=== PATIENT | female | born 1985 | race African-American/Black ===

== ENCOUNTER 2016-05-14 13:24 | Emergency (ER) | payer SELFPAY ==
--- NOTE | 2016-05-14 13:59 | ER Document Report ---
ED Medical Screen (RME) - General Stated Complaint: TOOTH PAIN Mode of Arrival: Ambulatory Information source: Patient Notes: Patient complains of dental pain for the past year. TRAVEL OUTSIDE OF THE [place] IN LAST 30 DAYS: No Past Medical History Past Surgical History: Reports: Hx Section Physical Exam - Vital signs Vitals: Temp Pulse Resp BP Pulse Ox 98.2 F 86 20 140/90 H 98 05/14/16 13:51 05/14/16 13:51 05/14/16 13:51 05/14/16 13:51 05/14/16 13:51 - General General appearance: Appears well, Alert In distress: None Course - Vital Signs Vital signs: Temp Pulse Resp BP Pulse Ox 98.2 F 86 20 140/90 H 98 05/14/16 13:51 05/14/16 13:51 05/14/16 13:51 05/14/16 13:51 05/14/16 13:51
[2016-05-14] MEDS ORDERED: OXYCODONE-ACETAMINOPHEN 5-325 MG TABLET PO ONE (15:40)
--- NOTE | 2016-05-14 15:41 | ER Document Report ---
HPI - HPI Patient complains to provider of: tooth pain Onset: This morning Onset/Duration: Sudden Quality of pain: Achy Severity: Severe Pain Level: 5 Context: Patient presents emergency department with complaints of right lower dental pain that started this morning. She reports she ate steak last night. Pain started this morning. Denies other symptoms such as fever vomiting diarrhea. Patient reports she had the same dental pain last year, came here received antibiotics, the tooth got better so she never followed up with a dentist. Associated Symptoms: None Exacerbated by: Denies Relieved by: Denies Similar symptoms previously: Yes Recently seen / treated by doctor: No - DERM Skin Color: Normal Past Medical History - General Information source: Patient Last Menstrual Period: current - Social History Smoking Status: Never Smoker Chew tobacco use (# tins/day): No Frequency of alcohol use: None Drug Abuse: None Occupation: [email or web address] Family History: Reviewed & Not Pertinent Patient has suicidal ideation: No Patient has homicidal ideation: No - Medical History Medical History: Negative Renal/ Medical History: Denies: Hx Peritoneal Dialysis Past Surgical History: Reports: Hx Section Vertical Provider Document - CONSTITUTIONAL Agree With Documented VS: Yes Exam Limitations: No Limitations General Appearance: WD/WN, No Apparent Distress - seems angry, nontoxic looking - INFECTION CONTROL TRAVEL OUTSIDE OF THE [place] IN LAST 30 DAYS: No - HEENT HEENT: Atraumatic, Normocephalic Mouth Diagram: 1 - dental cavity noted, no erythema, no swelling, no pustule. Opens mouth wide clear voice no induration no ludwigs - NECK Neck: Normal Inspection, Supple. negative: Lymphadenopathy-Left, Lymphadenopathy-Right - RESPIRATORY Respiratory: Breath Sounds Normal, No Respiratory Distress O2 Sat by Pulse Oximetry: 98 - CARDIOVASCULAR Cardiovascular: Regular Rate - MUSCULOSKELETAL/EXTREMETIES Musculoskeletal/Extremeties: EVA ALLRED - NEURO Level of Consciousness: Awake, Alert, Appropriate Motor/Sensory: No Motor Deficit - DERM Integumentary: Warm, Dry Course - Re-evaluation Re-evalutation: 05/14/16 Patient was angry as soon as I walked in the exam room. Her friend was very nice and patient. Pt reports she has taken 600 mg of Motrin with no relief from pain. Patient was instructed on the importance of follow-up with dentist. She reports she received a dental resource last time she was here. She is not interested in more information. - Vital Signs Vital signs: Temp Pulse Resp BP Pulse Ox 98.2 F 86 16 140/90 H 98 05/14/16 13:51 05/14/16 13:51 05/14/16 15:24 05/14/16 13:51 05/14/16 13:51 Discharge - Discharge Clinical Impression: Pain, dental, Elevated blood pressure reading Condition: Stable Disposition: HOME, SELF-CARE Instructions: Penicillin V K ([facility]), Toothache ([facility]), Oral Narcotic Medication ( [facility]), [facility] Additional Instructions: *You have been evaluated for dental pain *Take medications as prescribed *Follow up with A dentist this week *Return to ED for worsening condition, changes, needs Prescriptions: Oxycodone HCl/Acetaminophen [Percocet 5-325 mg Tablet] 1 tab PO ASDIR PRN #10 tablet PRN Reason: Penicillin V Potassium [Penicillin Vk 500 mg Tablet] 500 mg PO BID #20 tablet Forms: Elevated Blood Pressure, Return to Work
[2016-05-14 16:04] VITALS: BP 148/93
== END 2016-05-14 16:00 | disposition home or self-care (01) ==
LOC: ER 13:24
DX: K08.9 Disorder of teeth and supporting structures, unspecified (principal); R03.0 Elevated blood-pressure reading, without diagnosis of hypertension
CPT/HCPCS: 99282

== ENCOUNTER 2017-05-15 13:19 | Emergency (ER) | payer SELFPAY ==
[2017-05-15 13:39] VITALS: BP 135/74
--- NOTE | 2017-05-15 14:33 | ER Document Report ---
ED Oral Problem - General Chief Complaint: Toothache Stated Complaint: TOOTHACHE Time Seen by Provider: 05/15/17 14:17 Mode of Arrival: Ambulatory Information source: Patient Notes: Patient is a 32-year-old female who presents to the ER today for cavity, until pain, swelling to the right lower jawline. Patient states that she does not have a dentist because she does not have insurance. She denies any fevers or chills. She denies any drainage to the area. TRAVEL OUTSIDE OF THE [place] IN LAST 30 DAYS: No - Related Data Allergies/Adverse Reactions: No Known Allergies Allergy (Verified 05/15/17 13:20) Past Medical History - General Information source: Patient - Social History Smoking Status: Never Smoker Chew tobacco use (# tins/day): No Frequency of alcohol use: None Drug Abuse: None Family History: Reviewed & Not Pertinent Patient has suicidal ideation: No Patient has homicidal ideation: No Renal/ Medical History: Denies: Hx Peritoneal Dialysis Past Surgical History: Reports: Hx Section Review of Systems - Review of Systems Constitutional: No symptoms reported EENT: See HPI Cardiovascular: No symptoms reported Respiratory: No symptoms reported Gastrointestinal: No symptoms reported Genitourinary: No symptoms reported Female Genitourinary: No symptoms reported Musculoskeletal: No symptoms reported Skin: No symptoms reported Hematologic/Lymphatic: No symptoms reported Neurological/Psychological: No symptoms reported Physical Exam - Vital signs Vitals: Temp Pulse Resp BP Pulse Ox 98.8 F 77 18 135/74 H 100 05/15/17 13:37 05/15/17 13:37 05/15/17 13:37 05/15/17 13:37 05/15/17 13:37 - Notes Notes: PHYSICAL EXAMINATION: GENERAL: Uncomfortable appearing, but in no acute distress. HEAD: Atraumatic, normocephalic. EYES: Pupils equal round and reactive to light, extraocular movements intact, sclera anicteric, conjunctiva are normal. ENT: Very poor dentition, large open cavity to tooth #29 NECK: Normal range of motion, supple without lymphadenopathy LUNGS: CTAB and equal. No wheezes rales or rhonchi. HEART: Regular rate and rhythm without murmurs EXTREMITIES: Normal range of motion, no pitting edema. No cyanosis. NEUROLOGICAL: Cranial nerves grossly intact. Normal sensory/motor exams. PSYCH: Normal mood, normal affect. SKIN: Warm, Dry, normal turgor, no rashes or lesions noted Course - Re-evaluation Re-evalutation: 05/15/17 14:30 pt declined dental block - Vital Signs Vital signs: Temp Pulse Resp BP Pulse Ox 98.8 F 77 18 135/74 H 100 05/15/17 13:37 05/15/17 13:37 05/15/17 13:37 05/15/17 13:37 05/15/17 13:37 Discharge - Discharge Clinical Impression: Dental cavity Condition: Stable Disposition: HOME, SELF-CARE Additional Instructions: Return immediately for any new or worsening symptoms. Follow up with primary care provider, call tomorrow to make followup appointment. Prescriptions: Amoxicillin 500 mg PO TID #30 capsule Referrals: [facility] [Provider Group] - Follow up as needed
[2017-05-15] MEDS ORDERED: HYDROCODONE/ACETAMINOPHEN 5-325 MG (6 TAB/ER DISP) PO PRN (14:34)
== END 2017-05-15 14:20 | disposition home or self-care (01) ==
LOC: ER 13:19
DX: K02.9 Dental caries, unspecified (principal); K08.89 Other specified disorders of teeth and supporting structures
CPT/HCPCS: 99282

== ENCOUNTER 2019-11-09 11:38 | Inpatient (IN) | payer MEDICAID ==
[2019-11-09] MEDS ORDERED: NORMAL SALINE 1000 ML 1,000 ML IV ONE ×2 (13:50→15:40)
[2019-11-09 13:57] LABS: APPEARANCE,URINE SLIGHTLY-CLOUDY; BILIRUBIN,URINE MODERATE (NEGATIVE); COLOR,URINE AMBER; GLUCOSE, URINE NEGATIVE (NEGATIVE); KETONES,URINE NEGATIVE (NEGATIVE); LEUKOCYTE ESTERASE,URINE NEGATIVE (NEGATIVE); NITRITE,URINE NEGATIVE (NEGATIVE); PROTEIN,URINE >=500 mg/dL (NEGATIVE); URINE SPECIFIC GRAVITY 1.026
[2019-11-09 14:05] LABS: ABSOLUTE BASOPHILS # (AUTO) 0.1 10^3/uL (0.0-0.2); ABSOLUTE LYMPHOCYTES (AUTO) 0.9 10^3/uL (0.5-4.7); ABSOLUTE MONOCYTES (AUTO) 0.5 10^3/uL (0.1-1.4); ABSOLUTE NEUT (AUTO) 7.2 10^3/uL (1.7-8.2); BASOPHILS % (AUTO) 0.9 % (0-2); EOSINOPHILS % (AUTO) 0.1 % (0-6); HEMATOCRIT 36.5 % (36.0-47.0); HEMOGLOBIN 12.4 g/dL (12.0-15.5); LYMPHOCYTES % (AUTO) 10.1 % (13-45); MEAN CORPUSCULAR HEMOGLOBIN 26.7 pg (27.0-33.4); MEAN CORPUSCULAR HGB CONC 33.8 g/dL (32.0-36.0); MEAN CORPUSCULAR VOLUME 79 fl (80-97); MONOCYTES % (AUTO) 5.7 % (3-13); PLATELET COUNT 638 10^3/uL (150-450); RED BLOOD COUNT 4.63 10^6/uL (3.72-5.28); RED CELL DISTRIBUTION WIDTH 17.2 % (11.5-14.0); SEGMENTED NEUTROPHILS % (AUTO) 83.2 % (42-78); TOTAL CELLS COUNTED % (AUTO) 100 %; WHITE BLOOD COUNT 8.6 10^3/uL (4.0-10.5)
[2019-11-09 14:22] LABS: ALBUMIN 4.5 g/dL (3.5-5.0); ALKALINE PHOSPHATASE 189 U/L (38-126); ANION GAP 15 (5-19); ASPARTATE AMINO TRANSFERASE 138 U/L (14-36); BILIRUBIN,DIRECT 0.3 mg/dL (0.0-0.4); BILIRUBIN,TOTAL 1.3 mg/dL (0.2-1.3); BLOOD UREA NITROGEN 8 mg/dL (7-20); CALCIUM 11.3 mg/dL (8.4-10.2); CARBON DIOXIDE 27 mmol/L (22-30); CHLORIDE 94 mmol/L (98-107); GLUCOSE 207 mg/dL (75-110); POTASSIUM 3.5 mmol/L (3.6-5.0); TOTAL PROTEIN 9.5 g/dL (6.3-8.2)
[2019-11-09 14:30] LABS: ACETAMINOPHEN < 10 ug/mL (10-30); ALCOHOL < 10 mg/dL (NONE DETECTED); SALICYLATE < 1.0 mg/dL (2.0-20.0)
[2019-11-09 14:37] LABS: URINE AMPHETAMINES SCREEN NEGATIVE; URINE BARBITURATES SCREEN NEGATIVE; URINE BENZODIAZEPINES SCREEN NEGATIVE; URINE COCAINE SCREEN NEGATIVE; URINE METHADONE SCREEN NEGATIVE; URINE PHENCYCLIDINE SCREEN NEGATIVE
[2019-11-09 14:38] LABS: URINE MARIJUANA (THC) SCREEN UNCONFIRMED POSITIVE
--- NOTE | 2019-11-09 14:53 | ER Document Report ---
ED General - General TRAVEL OUTSIDE OF THE [place] IN LAST 30 DAYS: No <MARY HIDALGO - Last Filed: 11/09/19 23:30> <VANIA PEPE - Last Filed: 11/10/19 02:10> - General Chief Complaint: Alcohol Withdrawl Stated Complaint: VOMITING Time Seen by Provider: 11/09/19 13:48 Notes: 34-year-old female with past medical history of alcohol abuse and anxiety presenting today with concerns of just not feeling well. States that she drinks daily. She says she drinks a bottle of wine, multiple beers, or possible airplane liquor bottles. States that her last drink was this morning. She woke up around 4 AM and took 1 shot. States that she had a total of 4 shots this morning. She had an episode of nausea and vomiting this a.m but when asked if she feels nauseated at this time she says no. She denies any specific symptoms to include chest pain, shortness of breath or abdominal pain. She does states that she just does not feel well saying that she has had a decreased appetite an d difficulty sleeping at night. States she does not drink water or take care of herself appropriately. States she has has a history of anxiety. Has not been on any medication for this. Anxiety has never been this bad. She lost her job in January. She denies any suicidal ideations or homicidal ideations. Denies any hallucinations. She does have a job starting tomorrow. She wants to feel better before then. (MARY HIDALGO) - Related Data Allergies/Adverse Reactions: No Known Allergies Allergy (Verified 11/09/19 13:05) Past Medical History - Social History Smoking Status: Current Some Day Smoker Family History: Reviewed & Not Pertinent Patient has homicidal ideation: No Renal/ Medical History: Denies: Hx Peritoneal Dialysis Past Surgical History: Reports: Hx Section <MARY HIDALGO - Last Filed: 11/09/19 23:30> Review of Systems - Review of Systems Constitutional: See HPI EENT: No symptoms reported Cardiovascular: No symptoms reported Respiratory: No symptoms reported Gastrointestinal: See HPI Genitourinary: No symptoms reported Female Genitourinary: No symptoms reported Musculoskeletal: No symptoms reported Skin: No symptoms reported Hematologic/Lymphatic: No symptoms reported Neurological/Psychological: No symptoms reported <MARY HIDALGO - Last Filed: 11/09/19 23:30> Physical Exam - Vital signs Interpretation: Tachycardic, Tachypneic <MARY HIDALGO - Last Filed: 11/09/19 23:30> - Vital signs Vitals: Pulse Resp BP Pulse Ox 146 H 18 129/88 H 100 11/09/19 12:59 11/09/19 12:59 11/09/19 12:59 11/09/19 12:59 - Notes Notes: Adult General: GENERAL: Alert, interacts well. No acute distress HEAD: Normocephalic, atraumatic EYES: Pupils equal, round and reactive to light. Extraocular movements intact. ENT: Oral mucosa moist, tongue midline. Oropharynx unremarkable. Airway patent. Nares patent, sinuses nontender, ear canals unremarkable, TMs intact. No Trismus. NECK: Full range of motion. Supple. Trachea midline. LUNGS: Clear to auscultation bilaterally, no wheezes, rales, or rhonchi. No respiratory distress. Nontender chest wall. HEART: Regular rate and rhythm. No murmurs, rubs or gallops. ABDOMEN: Soft, nontender. Nondistended. (-) [place] sign. Bowel sounds present in all 4 quadrants. No rebound, guarding or masses. GENITOURINARY: Deferred EXTREMITIES: Moves all 4 extremities spontaneously. BACK: No cervical, thoracic, lumbar midline tenderness. No saddle anesthesia, normal distal neurovascular exam. Moves all extremities with full range of motion. NEUROLOGICAL: Alert and oriented x3. Normal speech. Cranial nerves II through XII grossly intact. Strength 5/ 5 in all extremities. PSYCH: Normal affect, normal mood. SKIN: Warm, dry, normal turgor. No rashes or lesions noted. (MARY HIDALGO) Course - Laboratory Result Diagrams: 11/09/19 13:40 11/09/19 21:30 <MARY HIDALGO - Last Filed: 11/09/19 23:30> - Laboratory Result Diagrams: 11/09/19 13:40 11/09/19 21:30 <VANIA PEPE - Last Filed: 11/10/19 02:10> - Re-evaluation Re-evalutation: ciwa criteria is 2. She is not having any tremors. Her physical exam is benign. She is in no acute distress. Non toxic. Continues to deny any nausea vomiting or specific complaints. Denies any pain. Patient has received 2 L Normal saline and 2 mg ativan. She remains tachycardic and her respiratory rate ranges from 15-30's. Her lipase is elevated, calcium s lightly elevated, sodium and potassium mildly decreased. She denies any chest pain, shortness of breath, abdominal pain, nausea vomiting or additional symptoms. I have discussed this patient with Dr. Lucero. I have concerns patients symptoms are due to anxiety and alcohol abuse, but I do have concerns of pancreatitis developing due to her alcohol use and elevated lipase. She recommends an additional dose of ativan and LR and repeat labs. I have discussed with the patient that I suspect her symptoms are due to alcohol and she does state a desire to want to quit and is agreeable to quitting. I have discussed with her a librium taper to help her control potential withdrawl symptoms. She continues to deny any chest pain, shortness of breath, abdominal pain. She does remain tachycardic at this time and her respiratory rate continues to range from the 15's to 30's and her HR is in the 110's. At this time pending finishing receiving fluids and repeat labs for reevaluation. Turn over provided to Vania Bolaños NP. (MARY HIDALGO) 11/09/19 2105 Patient's repeat electrolytes received. We are going to have these redrawn with a new venipuncture as the results do not align with what would have been expected after the patient having 3 L of IV fluids. 11/09/19 22:20 Patient re-evaluated. Labs still pending. EKG was repeated and reviewed, shows a sinus tachycardia, heart rate 118, normal intervals, normal axis, no ST segment elevations or depressions, no change from previous EKG. Patient is now having pain in the upper abdomen with nausea and vomiting. Medications ordered. Patient updated on plan of care and the possibility of the need for admission to the hospital. Patient has no questions at this time. 11/09/19 23:03 Labs returned, lipase elevating, patient continues to have abd pain. Electrolytes otherwise appear improved from the second lab draw. 11/10/19 01:00 CT abdomen pelvis confirms acute pancreatitis. I called and spoke with ho spitalist who agrees to come and evaluate the patient. (VANIA PEPE) - Vital Signs Vital signs: Temp Pulse Resp BP Pulse Ox 98.9 F 146 H 20 126/88 H 100 11/09/19 17:20 11/09/19 12:59 11/10/19 01:01 11/10/19 00:59 11/10/19 01:01 - Laboratory Laboratory results interpreted by me: 11/09/19 11/09/19 11/09/19 13:10 13:40 13:40 MCV 79 L MCH 26.7 L RDW 17.2 H Plt Count 638 H Lymph % (Auto) 10.1 L Seg Neutrophils % 83.2 H Sodium 135.8 L Potassium 3.5 L Chloride 94 L Carbon Dioxide Anion Gap BUN Creatinine Glucose 207 H Calcium 11.3 H Ionized Calcium John AST 138 H ALT 48 H Alkaline Phosphatase 189 H Total Protein 9.5 H Albumin Lipase 734.6 H Urine Protein >=500 H Urine Bilirubin MODERATE H Urine Urobilinogen 2.0 H Salicylates < 1.0 L Acetaminophen < 10 L 11/09/19 11/09/19 11/09/19 20:08 20:08 21:30 MCV MCH RDW Plt Count Lymph % (Auto) Seg Neutrophils % Sodium 134.0 L Potassium 2.7 L* 3.2 L Chloride 115 H Carbon Dioxide 20 L Anion Gap 3 L BUN 5 L Creatinine 0.45 L Glucose 172 H Calcium 6.4 L* Ionized Calcium John AST 61 H 81 H ALT Alkaline Phosphatase 128 H Total Protein 5.6 L Albumin 2.3 L 3.4 L Lipase 780.1 H Urine Protein Urine Bilirubin Urine Urobilinogen Salicylates Acetaminophen 11/09/19 11/09/19 21:30 22:17 MCV MCH RDW Plt Count Lymph % (Auto) Seg Neutrophils % Sodium Potassium Chloride Carbon Dioxide Anion Gap BUN Creatinine Glucose Calcium Ionized Calcium John 1.07 L AST ALT Alkaline Phosphatase Total Protein Albumin Lipase 965.9 H Urine Protein Urine Bilirubin Urine Urobilinogen Salicylates Acetaminophen Discharge <MARY HIDALGO - Last Filed: 11/09/19 23:30> - Discharge Admitting Provider: Josefina (Hospitalist) Unit Admitted: Telemetry <VANIA PEPE - Last Filed: 11/10/19 02:10> - Discharge Clinical Impression: Tachycardia Pancreatitis Qualifiers: Chronicity: acute Pancreatitis type: alcohol induced Acute pancreatitis complication: no infection or necrosis Qualified Code(s): K85.20 - Alcohol induced acute pancreatitis without necrosis or infection Condition: Stable Disposition: ADMITTED INPATIENT Prescriptions: Chlordiazepoxide HCl 25 mg PO ASDIR 4 Days #25 capsule
[2019-11-09] MEDS ORDERED: LORAZEPAM 1 MG TABLET PO ONE (15:41)
[2019-11-09] MEDS ORDERED: LORAZEPAM INJ 2 MG/1 ML VIAL IV ONE ×2 (17:26→18:45)
[2019-11-09] MEDS ORDERED: RINGERS SOLUTION,LACTATED 1,000 ML IV ONE (18:45)
[2019-11-09 20:40] LABS: ALBUMIN 2.3 g/dL (3.5-5.0); ALKALINE PHOSPHATASE 91 U/L (38-126); ASPARTATE AMINO TRANSFERASE 61 U/L (14-36); BILIRUBIN,TOTAL 0.7 mg/dL (0.2-1.3); BLOOD UREA NITROGEN 5 mg/dL (7-20); GLUCOSE 110 mg/dL (75-110); TOTAL PROTEIN 5.6 g/dL (6.3-8.2)
[2019-11-09 20:45] LABS: CARBON DIOXIDE 20 mmol/L (22-30); CHLORIDE 115 mmol/L (98-107)
[2019-11-09 20:47] LABS: ANION GAP 3 (5-19)
[2019-11-09 20:53] LABS: CALCIUM 6.4 mg/dL (8.4-10.2); POTASSIUM 2.7 mmol/L (3.6-5.0)
[2019-11-09] MEDS ORDERED: POTASSIUM CHLORIDE 20 MEQ PACKET PO ONE (21:20)
[2019-11-09] MEDS ORDERED: METOCLOPRAMIDE HCL INJ/PF 10 MG/2 ML SDV IV ONE (22:05)
[2019-11-09] MEDS ORDERED: MORPHINE SULFATE 10 MG/ML INJ IV ONE (22:05)
[2019-11-09 22:27] LABS: ALBUMIN 3.4 g/dL (3.5-5.0); ALKALINE PHOSPHATASE 128 U/L (38-126); ANION GAP 7 (5-19); ASPARTATE AMINO TRANSFERASE 81 U/L (14-36); BILIRUBIN,DIRECT 0.2 mg/dL (0.0-0.4); BILIRUBIN,TOTAL 1.1 mg/dL (0.2-1.3); BLOOD UREA NITROGEN 7 mg/dL (7-20); CALCIUM 8.5 mg/dL (8.4-10.2); CARBON DIOXIDE 24 mmol/L (22-30); CHLORIDE 103 mmol/L (98-107); GLUCOSE 172 mg/dL (75-110); POTASSIUM 3.2 mmol/L (3.6-5.0); TOTAL PROTEIN 7.3 g/dL (6.3-8.2)
--- NOTE | 2019-11-10 00:37 | RADIOLOGY REPORT (SQ) ---
CT abdomen and pelvis with contrast on 11/10/2019 at 12:03 AM CLINICAL INDICATION: Upper abdominal pain, elevated lipase TECHNIQUE: Multiple axial images are obtained throughout the abdomen and pelvis following the administration of IV contrast, 100 mL of Omnipaque 350contrast was administered intravenously without complication. This exam was performed according to our departmental dose-optimization program, which includes automated exposure control, adjustment of the mA and/or kV according to patient size and/or use of iterative reconstruction technique. Total DLP is 1789.33 mGy*cm. COMPARISON: None FINDINGS: Abdomen: The lung bases are clear. There is fatty infiltration of the liver. There is peripancreatic fluid and stranding around the pancreatic head consistent with mild acute pancreatitis. No definite complication of pancreatitis is noted at this time. Solid abdominal organs are otherwise unremarkable. There is no abdominal adenopathy. There is a rounded low-density structure with peripheral high density in the left upper quadrant seen well on axial image 29 and coronal image 34. This is of unknown definite etiology but has benign appearance and is likely incidental. There is no free air within the abdomen. The abdominal portion of the GI tract is unremarkable. Pelvis: Pelvic organs appear unremarkable by CT. No free fluid is noted in the pelvis. There is no pelvic adenopathy. The definite appendix is not visualized but no pericecal inflammatory changes are noted. Pelvic portion of the GI tract is unremarkable. No bony abnormality is noted. IMPRESSION: 1. Findings consistent with acute pancreatitis involving the pancreatic head without definite complication of pancreatitis noted at this time. 2. Fatty infiltration of the liver.
[2019-11-10] MEDS ORDERED: MORPHINE SULFATE 10 MG/ML INJ IV ONE (01:13)
--- NOTE | 2019-11-10 01:15 | EKG REPORT ---
SEVERITY:- ABNORMAL ECG - SINUS TACHYCARDIA NONSPECIFIC T ABNORMALITIES, DIFFUSE LEADS : Confirmed by: Es Justice MD 10-Nov-2019 01:13:54
--- NOTE | 2019-11-10 01:15 | EKG REPORT ---
SEVERITY:- BORDERLINE ECG - SINUS TACHYCARDIA BORDERLINE T ABNORMALITIES, INFERIOR LEADS BORDERLINE PROLONGED QT INTERVAL : Confirmed by: Es Justice MD 10-Nov-2019 01:14:01
--- NOTE | 2019-11-10 01:54 | PDOC H&P ---
History of Present Illness History of Present Illness: MIRLANDE MONTGOMERY is a 34 year old female who is a heavy daily drinker and says that since the lockdown she has been out of work and she is been home drinking all day. She says the only time she does not have anything to drink is when she goes to the grocery store to get more alcohol. She has been having nausea and abdominal pain for the past 4 days. She says she still been drinking through it her last drink was early yesterday morning. She denies experiencing anything that she thinks her withdrawal symptoms. She is not been having any tremors or hallucinations. She mostly just does not feel good and she has some midepigastric abdominal pain. It does not radiate. No fevers. No cough, chest pain, or shortness of breath. No diarrhea. She had an elevated lipase and a CT scan that was consistent with inflammation of the pancreatic head consistent with pancreatitis. Past Surgical History Past Surgical History: Reports: Section Social History Smoking Status: Current Some Day Smoker Family History Family History: Reviewed & Not Pertinent, Hyperlipidemia, Hypertension, Thyroid Disfunction Parental Family History Reviewed: Yes Children Family History Reviewed: NA Sibling(s) Family History Reviewed.: Yes Medication/Allergy Home Medications: Chlordiazepoxide HCl 25 mg PO ASDIR 4 Days #25 capsule 11/09/19 Allergies/Adverse Reactions: No Known Allergies Allergy (Verified 11/09/19 13:05) Review of Systems All systems: reviewed and no additional remarkable complaints except as stated - All systems were reviewed and were negative except as noted in the HPI Physical Exam Vital Signs: Temp Pulse Resp BP Pulse Ox 98.9 F 146 H 20 126/88 H 100 11/09/19 17:20 11/09/19 12:59 11/10/19 01:01 11/10/19 00:59 11/10/19 01:01 Intake & Output 11/08/19 11/09/19 11/10/19 06:59 06:59 06:59 Intake Total 3000 Balance 3000 Weight 86.183 kg General appearance: PRESENT: cooperative, disheveled, mild distress, morbidly obese Head exam: PRESENT: atraumatic, normocephalic Eye exam: PRESENT: EOMI, PERRLA. ABSENT: conjunctival injection, nystagmus, scleral icterus Ear exam: PRESENT: normal external ear exam Mouth exam: PRESENT: dry mucosa, neck supple Throat exam: ABSENT: post pharyngeal erythema Neck exam: PRESENT: full ROM. ABSENT: carotid bruit, JVD, lymphadenopathy, m eningismus, tenderness, thyromegaly Respiratory exam: PRESENT: clear to auscultation helena, symmetrical, unlabored. ABSENT: accessory muscle use, chest wall tenderness, crackles, prolonged expiratory phas, rhonchi, tachypnea, wheezes Cardiovascular exam: PRESENT: +S1, +S2, tachycardia Pulses: PRESENT: normal carotid pulses Vascular exam: PRESENT: normal capillary refill GI/Abdominal exam: PRESENT: normal bowel sounds, soft, tenderness - Mild midepigastric. ABSENT: distended, guarding, rebound Extremities exam: ABSENT: clubbing, pedal edema Musculoskeletal exam: PRESENT: normal inspection. ABSENT: deformity Neurological exam: PRESENT: alert, awake, oriented to person, oriented to place, oriented to time, oriented to situation, CN II-XII grossly intact. ABSENT: motor sensory deficit Psychiatric exam: PRESENT: appropriate affect, normal mood Skin exam: PRESENT: dry, warm Results Laboratory Results: 11/09/19 13:40 11/09/19 21:30 11/09/19 11/09/19 11/09/19 13:10 13:40 13:40 WBC 8.6 RBC 4.63 Hgb 12.4 Hct 36.5 MCV 79 L MCH 26.7 L MCHC 33.8 RDW 17.2 H Plt Count 638 H Seg Neutrophils % 83.2 H Sodium 135.8 L Potassium 3.5 L Chloride 94 L Carbon Dioxide 27 Anion Gap 15 BUN 8 Creatinine 0.71 Est GFR ( Amer) > 60 Glucose 207 H Calcium 11.3 H Ionized Calcium John Magnesium Total Bilirubin 1.3 AST 138 H Alkaline Phosphatase 189 H Total Protein 9.5 H Albumin 4.5 Lipase 734.6 H TSH Urine Color CINDY Urine Appearance SLIGHTLY-CLOUDY Urine pH 7.0 Ur Specific [place] 1.026 Urine Protein >=500 H Urine Glucose (UA) NEGATIVE Urine Ketones NEGATIVE Urine Blood NEGATIVE Urine Nitrite NEGATIVE Ur Leukocyte Esterase NEGATIVE Urine WBC (Auto) 2 Urine RBC (Auto) 5 11/09/19 11/09/19 11/09/19 13:40 13:40 20:08 WBC RBC Hgb Hct MCV MCH MCHC RDW Plt Count Seg Neutrophils % Sodium 137.8 Potassium 2.7 L* Chloride 115 H Carbon Dioxide 20 L Anion Gap 3 L BUN 5 L Creatinine 0.45 L Est GFR ( Amer) > 60 Glucose 110 Calcium 6.4 L* Ionized Calcium John Magnesium 1.6 Total Bilirubin 0.7 AST 61 H Alkaline Phosphatase 91 Total Protein 5.6 L Albumin 2.3 L Lipase TSH 1.40 Urine Color Urine Appearance Urine pH Ur Specific [place] Urine Protein Urine Glucose (UA) Urine Ketones Urine Blood Urine Nitrite Ur Leukocyte Esterase Urine WBC (Auto) Urine RBC (Auto) 11/09/19 11/09/19 11/09/19 20:08 21:30 21:30 WBC RBC Hgb Hct MCV MCH MCHC RDW Plt Count Seg Neutrophils % Sodium 134.0 L Potassium 3.2 L Chloride 103 Carbon Dioxide 24 Anion Gap 7 BUN 7 Creatinine 0.61 Est GFR ( Amer) > 60 Glucose 172 H Calcium 8.5 Ionized Calcium John Magnesium Total Bilirubin 1.1 AST 81 H Alkaline Phosphatase 128 H Total Protein 7.3 Albumin 3.4 L Lipase 780.1 H 965.9 H TSH Urine Color Urine Appearance Urine pH Ur Specific [place] Urine Protein Urine Glucose (UA) Urine Ketones Urine Blood Urine Nitrite Ur Leukocyte Esterase Urine WBC (Auto) Urine RBC (Auto) 11/09/19 22:17 WBC RBC Hgb Hct MCV MCH MCHC RDW Plt Count Seg Neutrophils % Sodium Potassium Chloride Carbon Dioxide Anion Gap BUN Creatinine Est GFR ( Amer) Glucose Calcium Ionized Calcium John 1.07 L Magnesium Total Bilirubin AST Alkaline Phosphatase Total Protein Albumin Lipase TSH Urine Color Urine Appearance Urine pH Ur Specific [place] Urine Protein Urine Glucose (UA) Urine Ketones Urine Blood Urine Nitrite Ur Leukocyte Esterase Urine WBC (Auto) Urine RBC (Auto) Impressions: Abdomen/Pelvis CT 11/09/19 23:37 IMPRESSION: 1. Findings consistent with acute pancreatitis involving the pancreatic head without definite complication of pancreatitis noted at this time. 2. Fatty infiltration of the liver. Assessment and Plan - Diagnosis (1) Pancreatitis Qualifiers: Chronicity: acute Pancreatitis type: alcohol induced Acute pancreatitis complication: no infection or necrosis Qualified Code(s): K85.20 - Alcohol induced acute pancreatitis without necrosis or infection Is this a current diagnosis for this admission?: Yes Plan: N.p.o. Copious IV fluids. Pain and nausea control. Follow the trend in her lipase. (2) Alcoholism Is this a current diagnosis for this admission?: Yes Plan: [facility] with PRN Valium. Thiamine and vitamin supplementation daily. - Time Time Spent with patient: 35 or more minutes Anticipated Discharge Disposition: Home, Self Care Anticipated Discharge Timeframe: 4 to 5 days - Inpatient Certification Based on my medical assessment, after consideration of the patient's comorbidities, presenting symptoms, or acuity I expect that the services needed warrant INPATIENT care.: Yes I certify that my determination is in accordance with my understanding of Medicare's requirements for reasonable and necessary INPATIENT services [42 CFR 412.3e].: Yes Medical Necessity: Significant Comorbidiites Make Outpatient Treatment Too Risky, Need Close Monitoring Due to Risk of Patient Decompensation, Need For IV Fluids, Need For Continuous Telemetry Monitoring, Need for Pain Control, Risk of Complication if Not Cared For in Hospital
[2019-11-10] MEDS: RINGERS SOLUTION,LACTATED 1,000 ML IV PRN ×2 (04:40→10:52)
[2019-11-10] MEDS: ONDANSETRON HCL INJ/PF 4 MG/2 ML SDV IV PRN (05:05)
[2019-11-10] MEDS: HEPARIN SOD (PORCINE) 5,000 UNIT/ML 1 ML VIAL SUBCUT SCH ×3 (05:36→22:01)
[2019-11-10] MEDS: DIAZEPAM INJ 10 MG/2 ML DISP.SYRIN IV PRN ×4 (05:36→22:00)
[2019-11-10] MEDS: MORPHINE SULFATE 10 MG/ML INJ IV PRN ×4 (06:40→20:47)
[2019-11-10 08:06] LABS: HEMATOCRIT 28.3 % (36.0-47.0); MEAN CORPUSCULAR HEMOGLOBIN 26.9 pg (27.0-33.4); MEAN CORPUSCULAR HGB CONC 33.4 g/dL (32.0-36.0); MEAN CORPUSCULAR VOLUME 81 fl (80-97); PLATELET COUNT 369 10^3/uL (150-450); RED BLOOD COUNT 3.52 10^6/uL (3.72-5.28); RED CELL DISTRIBUTION WIDTH 17.8 % (11.5-14.0)
[2019-11-10 08:16] LABS: HEMOGLOBIN 9.5 g/dL (12.0-15.5)
[2019-11-10 08:28] LABS: ANION GAP 8 (5-19); BLOOD UREA NITROGEN 7 mg/dL (7-20); CALCIUM 8.3 mg/dL (8.4-10.2); CARBON DIOXIDE 24 mmol/L (22-30); CHLORIDE 105 mmol/L (98-107); GLUCOSE 138 mg/dL (75-110); POTASSIUM 3.2 mmol/L (3.6-5.0)
[2019-11-10] MEDS ORDERED: SIMETHICONE 80 MG TAB.CHEW PO ONE (11:15)
--- NOTE | 2019-11-10 11:19 | PDOC PROGRESS REPORT ---
Subjective Progress Note for:: 11/10/19 Subjective:: Patient is a 34-year-old female with a past medical history of alcohol dependence with continuous use who was admitted 11/10/2019 with pancreatitis. Patient was seen on morning rounds. She is found resting bed, comfortably, on room air. She reports generalized abdominal discomfort; believes it is gas pain. She does report that she had a bowel movement yesterday, but is unable to answer clearly whether or not she is passing gas. Abdomen is soft, nondistended, with positive bowel sounds. Otherwise, she denies fever, chills, chest pain, palpitations, dyspnea, ab dominal pain, nausea and vomiting. No concerns per nursing. Reason For Visit: PANCREATITIS Physical Exam Vital Signs: Temp Pulse Resp BP Pulse Ox 99.1 F 98 16 125/81 100 11/10/19 07:34 11/10/19 07:34 11/10/19 07:34 11/10/19 07:34 11/10/19 07:34 Intake & Output 11/09/19 11/10/19 11/11/19 06:59 06:59 06:59 Intake Total 3150 1000 Balance 3150 1000 Weight 87.2 kg 87.2 kg General appearance: PRESENT: no acute distress, disheveled, obese, well- developed, well-nourished Head exam: PRESENT: atraumatic, normocephalic Eye exam: PRESENT: conjunctiva pink, EOMI, PERRLA. ABSENT: scleral icterus Mouth exam: PRESENT: moist, tongue midline Respiratory exam: PRESENT: clear to auscultation helena, symmetrical, unlabored. ABSENT: rales, rhonchi, wheezes Cardiovascular exam: PRESENT: RRR. ABSENT: diastolic murmur, rubs, systolic murmur Pulses: PRESENT: normal dorsalis pedis pul Vascular exam: PRESENT: normal capillary refill GI/Abdominal exam: PRESENT: normal bowel sounds, soft, tenderness - Diffuse. ABSENT: distended, guarding, mass, organolmegaly, rebound Rectal exam: PRESENT: deferred Extremities exam: PRESENT: full ROM. ABSENT: calf tenderness, clubbing, pedal edema Neurological exam: PRESENT: alert, awake, oriented to person, oriented to place, oriented to time, oriented to situation, CN II-XII grossly intact. ABSENT: motor sensory deficit Psychiatric exam: PRESENT: appropriate affect, normal mood. ABSENT: homicidal ideation, suicidal ideation Skin exam: PRESENT: dry, intact, warm. ABSENT: cyanosis, rash Results Laboratory Results: 11/10/19 07:12 11/10/19 07:12 11/09/19 11/09/19 11/09/19 13:10 13:40 13:40 WBC 8.6 RBC 4.63 Hgb 12.4 Hct 36.5 MCV 79 L MCH 26.7 L MCHC 33.8 RDW 17.2 H Plt Count 638 H Seg Neutrophils % 83.2 H Sodium 135.8 L Potassium 3.5 L Chloride 94 L Carbon Dioxide 27 Anion Gap 15 BUN 8 Creatinine 0.71 Est GFR ( Amer) > 60 Glucose 207 H Calcium 11.3 H Ionized Calcium John Magnesium Total Bilirubin 1.3 AST 138 H Alkaline Phosphatase 189 H Total Protein 9.5 H Albumin 4.5 Triglycerides Lipase 734.6 H TSH Urine Color CINDY Urine Appearance SLIGHTLY-CLOUDY Urine pH 7.0 Ur Specific [place] 1.026 Urine Protein >=500 H Urine Glucose (UA) NEGATIVE Urine Ketones NEGATIVE Urine Blood NEGATIVE Urine Nitrite NEGATIVE Ur Leukocyte Esterase NEGATIVE Urine WBC (Auto) 2 Urine RBC (Auto) 5 11/09/19 11/09/19 11/09/19 13:40 13:40 20:08 WBC RBC Hgb Hct MCV MCH MCHC RDW Plt Count Seg Neutrophils % Sodium 137.8 Potassium 2.7 L* Chloride 115 H Carbon Dioxide 20 L Anion Gap 3 L BUN 5 L Creatinine 0.45 L Est GFR ( Amer) > 60 Glucose 110 Calcium 6.4 L* Ionized Calcium John Magnesium 1.6 Total Bilirubin 0.7 AST 61 H Alkaline Phosphatase 91 Total Protein 5.6 L Albumin 2.3 L Triglycerides Lipase TSH 1.40 Urine Color Urine Appearance Urine pH Ur Specific [place] Urine Protein Urine Glucose (UA) Urine Ketones Urine Blood Urine Nitrite Ur Leukocyte Esterase Urine WBC (Auto) Urine RBC (Auto) 11/09/19 11/09/19 11/09/19 20:08 21:30 21:30 WBC RBC Hgb Hct MCV MCH MCHC RDW Plt Count Seg Neutrophils % Sodium 134.0 L Potassium 3.2 L Chloride 103 Carbon Dioxide 24 Anion Gap 7 BUN 7 Creatinine 0.61 Est GFR ( Amer) > 60 Glucose 172 H Calcium 8.5 Ionized Calcium John Magnesium Total Bilirubin 1.1 AST 81 H Alkaline Phosphatase 128 H Total Protein 7.3 Albumin 3.4 L Triglycerides Lipase 780.1 H 965.9 H TSH Urine Color Urine Appearance Urine pH Ur Specific [place] Urine Protein Urine Glucose (UA) Urine Ketones Urine Blood Urine Nitrite Ur Leukocyte Esterase Urine WBC (Auto) Urine RBC (Auto) 11/09/19 11/09/19 11/10/19 21:30 22:17 07:12 WBC 7.0 RBC 3.52 L Hgb 9.5 L D Hct 28.3 L MCV 81 MCH 26.9 L MCHC 33.4 RDW 17.8 H Plt Count 369 Seg Neutrophils % Sodium Potassium Chloride Carbon Dioxide Anion Gap BUN Creatinine Est GFR ( Amer) Glucose Calcium Ionized Calcium John 1.07 L Magnesium Total Bilirubin AST Alkaline Phosphatase Total Protein Albumin Triglycerides 124 Lipase TSH Urine Color Urine Appearance Urine pH Ur Specific [place] Urine Protein Urine Glucose (UA) Urine Ketones Urine Blood Urine Nitrite Ur Leukocyte Esterase Urine WBC (Auto) Urine RBC (Auto) 11/10/19 07:12 WBC RBC Hgb Hct MCV MCH MCHC RDW Plt Count Seg Neutrophils % Sodium 136.9 L Potassium 3.2 L Chloride 105 Carbon Dioxide 24 Anion Gap 8 BUN 7 Creatinine 0.58 Est GFR ( Amer) > 60 Glucose 138 H Calcium 8.3 L Ionized Calcium John Magnesium Total Bilirubin AST Alkaline Phosphatase Total Protein Albumin Triglycerides Lipase 660.6 H TSH Urine Color Urine Appearance Urine pH Ur Specific [place] Urine Protein Urine Glucose (UA) Urine Ketones Urine Blood Urine Nitrite Ur Leukocyte Esterase Urine WBC (Auto) Urine RBC (Auto) Impressions: Abdomen/Pelvis CT 11/09/19 23:37 IMPRESSION: 1. Findings consistent with acute pancreatitis involving the pancreatic head without definite complication of pancreatitis noted at this time. 2. Fatty infiltration of the liver. Assessment and Plan - Diagnosis (1) Pancreatitis Qualifiers: Chronicity: acute Pancreatitis type: alcohol induced Acute pancreatitis complication: no infection or necrosis Qualified Code(s): K85.20 - Alcohol induced acute pancreatitis without necrosis or infection Is this a current diagnosis for this admission?: Yes Plan: Lipase trending down ; 780-> 965-> 660 Triglycerides 124 Hgb A1C pending Patient is admitted to medical floor on continuous cardiac telemetry. She is provided generous IV fluids. N.p.o. Antiemetics and analgesics as needed. (2) Hypokalemia Is this a current diagnosis for this admission?: Yes Plan: Oral replacement Follow-up chemistry. (3) Marijuana abuse Is this a current diagnosis for this admission?: Yes Plan: Cessation encouraged. (4) Alcoholism Is this a current diagnosis for this admission?: Yes Plan: Daily thiamine, folic acid, magnesium supplementation. Management of withdrawal as above. Discharge planning consulted. daily. - Time Time Spent with patient: 25-34 minutes Medications reviewed and adjusted accordingly: Yes Anticipated Discharge Disposition: Home, Self Care Anticipated Discharge Timeframe: within 48 hours
[2019-11-10] MEDS: NORMAL SALINE 1000 ML 1,000 ML with POTASSIUM CHLORIDE 20 MEQ, MAGNESIUM SULFATE 8 MEQ,... IV SCH ×5 (17:04)
[2019-11-10] MEDS ORDERED: BENZOCAINE 20% MM PRN (23:30)
[2019-11-11] MEDS: RINGERS SOLUTION,LACTATED 1,000 ML IV PRN ×4 (00:24→23:09)
[2019-11-11] MEDS: MORPHINE SULFATE 10 MG/ML INJ IV PRN ×5 (00:47→23:00)
[2019-11-11] MEDS: DIAZEPAM INJ 10 MG/2 ML DISP.SYRIN IV PRN ×6 (02:02→21:46)
[2019-11-11 05:16] LABS: HEMATOCRIT 27.8 % (36.0-47.0); HEMOGLOBIN 9.2 g/dL (12.0-15.5); MEAN CORPUSCULAR HEMOGLOBIN 26.8 pg (27.0-33.4); MEAN CORPUSCULAR HGB CONC 33.2 g/dL (32.0-36.0); MEAN CORPUSCULAR VOLUME 81 fl (80-97); PLATELET COUNT 313 10^3/uL (150-450); RED BLOOD COUNT 3.44 10^6/uL (3.72-5.28); RED CELL DISTRIBUTION WIDTH 17.8 % (11.5-14.0); WHITE BLOOD COUNT 7.4 10^3/uL (4.0-10.5)
[2019-11-11] MEDS: HEPARIN SOD (PORCINE) 5,000 UNIT/ML 1 ML VIAL SUBCUT SCH ×3 (05:17→21:46)
[2019-11-11 05:33] LABS: BLOOD UREA NITROGEN 4 mg/dL (7-20); CALCIUM 8.2 mg/dL (8.4-10.2); CARBON DIOXIDE 26 mmol/L (22-30); CHLORIDE 108 mmol/L (98-107); GLUCOSE 105 mg/dL (75-110); POTASSIUM 3.4 mmol/L (3.6-5.0)
[2019-11-11 05:47] LABS: ANION GAP 4 (5-19)
[2019-11-11] MEDS: LIDOCAINE 2% VISCOUS SOLN 15 ML UDCUP PO PRN ×2 (10:45→20:12)
--- NOTE | 2019-11-11 14:01 | PDOC PROGRESS REPORT ---
Subjective Progress Note for:: 11/11/19 Subjective:: MIRLANDE MONTGOMERY is a 34 year old female who is a heavy daily drinker and says that since the lockdown she has been out of work and she is been home drinking all day. She says the only time she does not have anything to drink is when she goes to the grocery store to get more alcohol. She has been having nausea and abdominal pain for the past 4 days. She says she still been drinking through it her last drink was early yesterday morning. She denies experiencing anything that she thinks her withdrawal symptoms. She is not been having any tremors or hallucinations. She mostly just does not feel good and she has some midepigastric abdominal pain. It does not radiate. No fevers. No cough, chest pain, or shortness of breath. No diarrhea. She had an elevated lipase and a CT scan that was consistent with inflammation of the pancreatic head consistent wit h pancreatitis. 11/11/2019. No acute events overnight. Patient still complaining of abdominal pain, passing flatus and tolerating clear liquid, denies any fever, chills, nausea, vomiting. Ambulatory. Has not had a bowel movement. Reason For Visit: PANCREATITIS Physical Exam Vital Signs: Temp Pulse Resp BP Pulse Ox 99.7 F 94 16 128/81 H 97 11/11/19 11:29 11/11/19 11:29 11/11/19 11:29 11/11/19 11:29 11/11/19 11:29 Intake & Output 11/10/19 11/11/19 11/12/19 06:59 06:59 06:59 Intake Total 3150 4086 1000 Balance 3150 4086 1000 Weight 87.2 kg 90.7 kg General appearance: PRESENT: no acute distress, obese, well-developed, well- nourished Head exam: PRESENT: atraumatic, normocephalic Respiratory exam: PRESENT: clear to auscultation helena. ABSENT: rales, rhonchi, wheezes Cardiovascular exam: PRESENT: RRR. ABSENT: diastolic murmur, rubs, systolic murmur GI/Abdominal exam: PRESENT: normal bowel sounds, soft, tenderness. ABSENT: distended, guarding, mass, organolmegaly, rebound Neurological exam: PRESENT: alert, awake, oriented to person, oriented to place, oriented to time, oriented to situation, CN II-XII grossly intact. ABSENT: motor sensory deficit Results Laboratory Results: 11/11/19 04:40 11/11/19 04:40 11/11/19 11/11/19 04:40 04:40 WBC 7.4 RBC 3.44 L Hgb 9.2 L Hct 27.8 L MCV 81 MCH 26.8 L MCHC 33.2 RDW 17.8 H Plt Count 313 Sodium 138.1 Potassium 3.4 L Chloride 108 H Carbon Dioxide 26 Anion Gap 4 L BUN 4 L Creatinine 0.51 L Est GFR ( Amer) > 60 Glucose 105 Calcium 8.2 L Lipase 380.5 H Impressions: Abdomen/Pelvis CT 11/09/19 23:37 IMPRESSION: 1. Findings consistent with acute pancreatitis involving the pancreatic head without definite complication of pancreatitis noted at this time. 2. Fatty infiltration of the liver. Assessment and Plan - Diagnosis (1) Pancreatitis Qualifiers: Chronicity: acute Pancreatitis type: alcohol induced Acute pancreatitis complication: no infection or necrosis Qualified Code(s): K85.20 - Alcohol induced acute pancreatitis without necrosis or infection Is this a current diagnosis for this admission?: Yes Plan: Lipase trending down ; 780-> 965-> 660 Triglycerides 124 Hgb A1C pending Patient is admitted to medical floor on continuous cardiac telemetry. She is provided generous IV fluids. N.p.o. Antiemetics and analgesics as needed. (2) Alcoholism Is this a current diagnosis for this admission?: Yes Plan: Daily thiamine, folic acid, magnesium supplementation. Management of withdrawal as above. Discharge planning consulted. daily. (3) Hypokalemia Is this a current diagnosis for this admission?: Yes Plan: Oral replacement Follow-up chemistry. (4) Marijuana abuse Is this a current diagnosis for this admission?: Yes Plan: Cessation encouraged. - Time Time Spent with patient: 15-24 minutes Medications reviewed and adjusted accordingly: Yes Anticipated Discharge Disposition: Home, Self Care Anticipated Discharge Timeframe: within 24 hours
[2019-11-11] MEDS: NORMAL SALINE 1000 ML 1,000 ML with POTASSIUM CHLORIDE 20 MEQ, MAGNESIUM SULFATE 8 MEQ,... IV SCH ×5 (17:46)
[2019-11-12] MEDS: DIAZEPAM INJ 10 MG/2 ML DISP.SYRIN IV PRN ×4 (01:47→16:47)
[2019-11-12] MEDS: MORPHINE SULFATE 10 MG/ML INJ IV PRN ×3 (03:01→13:07)
[2019-11-12 05:41] LABS: HEMATOCRIT 26.2 % (36.0-47.0); HEMOGLOBIN 8.7 g/dL (12.0-15.5); MEAN CORPUSCULAR HEMOGLOBIN 27.3 pg (27.0-33.4); MEAN CORPUSCULAR HGB CONC 33.1 g/dL (32.0-36.0); MEAN CORPUSCULAR VOLUME 82 fl (80-97); PLATELET COUNT 269 10^3/uL (150-450); RED BLOOD COUNT 3.18 10^6/uL (3.72-5.28); RED CELL DISTRIBUTION WIDTH 17.7 % (11.5-14.0); WHITE BLOOD COUNT 5.3 10^3/uL (4.0-10.5)
[2019-11-12] MEDS: RINGERS SOLUTION,LACTATED 1,000 ML IV PRN ×2 (06:02→13:09)
[2019-11-12 06:12] LABS: ANION GAP 5 (5-19); CARBON DIOXIDE 24 mmol/L (22-30); CHLORIDE 109 mmol/L (98-107); GLUCOSE 90 mg/dL (75-110); POTASSIUM 3.6 mmol/L (3.6-5.0)
[2019-11-12] MEDS: HEPARIN SOD (PORCINE) 5,000 UNIT/ML 1 ML VIAL SUBCUT SCH ×2 (06:13→13:25)
[2019-11-12 06:15] LABS: BLOOD UREA NITROGEN < 2 mg/dL (7-20)
[2019-11-12] MEDS: ONDANSETRON HCL INJ/PF 4 MG/2 ML SDV IV PRN (06:48)
[2019-11-12 08:24] LABS: ABSOLUTE RETICS # 0.092 10^6/uL (0.028-0.122); RETICULOCYTE COUNT (AUTO) 2.85 % (0.66-2.85)
[2019-11-12 08:36] LABS: IRON(TIBC) 30.7 ug/dL (37-170)
[2019-11-12 09:44] LABS: FOLATE 7.01 ng/mL (>2.76)
[2019-11-12 18:34] VITALS: BP 129/88
[2019-11-12] MEDS: NORMAL SALINE 1000 ML 1,000 ML with POTASSIUM CHLORIDE 20 MEQ, MAGNESIUM SULFATE 8 MEQ,... IV SCH ×5 (18:48)
--- NOTE | 2019-11-14 15:26 | PDOC DISCHARGE SUMMARY ---
Impression - Admit/DC Date/PCP Admission Date/Primary Care Provider: 11/10/19 02:33 Discharge Date: 11/12/19 - Discharge Diagnosis (1) Pancreatitis Is this a current diagnosis for this admission?: Yes (2) Alcoholism Is this a current diagnosis for this admission?: Yes (3) Hypokalemia Is this a current diagnosis for this admission?: Yes (4) Marijuana abuse Is this a current diagnosis for this admission?: Yes (5) Iron deficiency anemia Is this a current diagnosis for this admission?: Yes (6) Obesity (BMI 30-39.9) Is this a current diagnosis for this admission?: Yes - Additional Information Resuscitation Status: Full Code Discharge Diet: As Tolerated Discharge Activity: Activity As Tolerated Referrals: LOCALMD,NO [NO LOCAL MD] - (pt states she does not know who her medicaid provider is can not make follow up) Prescriptions: Ferrous Sulfate [Feosol 325 mg Tablet] 325 mg PO DAILY 30 Days #30 tab Ondansetron HCl [Zofran 8 mg Tablet] 8 mg PO Q8HP PRN 7 Days #21 tablet PRN Reason: Home Medications: Ferrous Sulfate [Feosol 325 mg Tablet] 325 mg PO DAILY 30 Days #30 tab 11/12/19 Ondansetron HCl [Zofran 8 mg Tablet] 8 mg PO Q8HP PRN 7 Days #21 tablet 11/12/19 History of Present Illiness History of Present Illness: MIRLANDE MONTGOMERY is a 34 year old female who is a heavy daily drinker and says that since the lockdown she has been out of work and she is been home drinking all day. She says the only time she does not have anything to drink is when she goes to the grocery store to get more alcohol. She has been having nausea and abdominal pain for the past 4 days. She says she still been drinking through it her last drink was early yesterday morning. She denies experiencing anything that she thinks her withdrawal symptoms. She is not been having any tremors or hallucinations. She mostly just does not feel good and she has some midepigastric abdominal pain. It does not radiate. No fevers. No cough, chest pain, or shortness of breath. No diarrhea. She had an elevated lipase and a CT scan that was consistent with inflammation of the pancreatic head consistent with pancreatitis. Hospital Course Hospital Course: (1) Pancreatitis Alcoholic pancreatitis. Denies any trauma. Hemoglobin is 6.4. Triglyceride 124. Was admitted to floor with aggressive fluid resuscitation guided by volume status, n.p.o. status and IV antiemetics and analgesics. Significant improvement. Diet advanced as tolerated. On the day of discharge on regular diet and having normal bowel and bladder. Abdominal pain resolved. (2) Alcoholism Advised on abstinence, was started on thiamine, folic acid, magnesium supplementation. DT protocol was implemented. No sign of withdrawal. Alert and oriented x4 at the time of discharge. (3) Hypokalemia Diabetes mellitus. No acute EKG change. Was started on potassium supplementation. Electrolytes without erythema discharge. (4) Marijuana abuse Cessation encouraged. (5) Iron deficiency anemia Patient currently menstruating. This was likely exacerbated by hemodilution due to aggressive fluid resuscitation for acute pancreatitis. Stool guaiac negative. Iron panel suggestive of iron deficiency anemia. Was discharged on ferrous sulfate and was asked to follow-up with PCP. (6) Prediabetes. Hemoglobin A1c 6.4. Patient was advised diet and lifestyle modification and follow-up with PCP in 3 months for evaluation of hemoglobin A1c. (6) Obesity (BMI 30-39.9) Hemoglobin A1c 6.4. TSH WNL. Diet and lifestyle modification recommended. Physical Exam Vital Signs: Temp Pulse Resp BP Pulse Ox 98.3 F 99 19 129/88 H 98 11/12/19 18:34 11/12/19 18:34 11/12/19 18:34 11/12/19 18:34 11/12/19 18:34 Intake & Output 11/13/19 11/14/19 11/15/19 06:59 06:59 06:59 Intake Total 2019 Balance 2019 Weight 92.7 kg General appearance: PRESENT: no acute distress, obese, well-developed, well- nourished Head exam: PRESENT: atraumatic, normocephalic Respiratory exam: PRESENT: clear to auscultation helena. ABSENT: rales, rhonchi, wheezes Cardiovascular exam: PRESENT: RRR. ABSENT: diastolic murmur, rubs, systolic murmur GI/Abdominal exam: PRESENT: normal bowel sounds, soft. ABSENT: distended, guarding, mass, organolmegaly, rebound, tenderness Extremities exam: PRESENT: full ROM. ABSENT: calf tenderness, clubbing, pedal edema Neurological exam: PRESENT: alert, awake, oriented to person, oriented to place, oriented to time, oriented to situation, CN II-XII grossly intact. ABSENT: motor sensory deficit Skin exam: PRESENT: dry, intact, warm. ABSENT: cyanosis, rash Results Laboratory Results: WBC 5.3 10^3/uL (4.0-10.5) 11/12/19 04:43 RBC 3.18 10^6/uL (3.72-5.28) L 11/12/19 04:43 Hgb 8.7 g/dL (12.0-15.5) L 11/12/19 04:43 Hct 26.2 % (36.0-47.0) L 11/12/19 04:43 MCV 82 fl (80-97) 11/12/19 04:43 MCH 27.3 pg (27.0-33.4) 11/12/19 04:43 MCHC 33.1 g/dL (32.0-36.0) 11/12/19 04:43 RDW 17.7 % (11.5-14.0) H 11/12/19 04:43 Plt Count 269 10^3/uL (150-450) 11/12/19 04:43 Lymph % (Auto) 10.1 % (13-45) L 11/09/19 13:40 [place] % (Auto) 5.7 % (3-13) 11/09/19 13:40 Eos % (Auto) 0.1 % (0-6) 11/09/19 13:40 Baso % (Auto) 0.9 % (0-2) 11/09/19 13:40 Reticulocyte # 0.092 10^6/uL (0.028-0.122) 11/12/19 04:43 Absolute Neuts (auto) 7.2 10^3/uL (1.7-8.2) 11/09/19 13:40 Absolute Lymphs (auto) 0.9 10^3/uL (0.5-4.7) 11/09/19 13:40 Absolute Monos (auto) 0.5 10^3/uL (0.1-1.4) 11/09/19 13:40 Absolute Eos (auto) 0.0 10^3/uL (0.0-0.6) 11/09/19 13:40 Absolute Basos (auto) 0.1 10^3/uL (0.0-0.2) 11/09/19 13:40 Seg Neutrophils % 83.2 % (42-78) H 11/09/19 13:40 Retic Count (auto) 2.85 % (0.66-2.85) 11/12/19 04:43 Sodium 137.6 mmol/L (137-145) 11/12/19 04:43 Potassium 3.6 mmol/L (3.6-5.0) 11/12/19 04:43 Chloride 109 mmol/L (98-107) H 11/12/19 04:43 Carbon Dioxide 24 mmol/L (22-30) 11/12/19 04:43 Anion Gap 5 (5-19) 11/12/19 04:43 BUN < 2 mg/dL (7-20) L 11/12/19 04:43 Creatinine 0.53 mg/dL (0.52-1.25) 11/12/19 04:43 Est GFR ( Amer) > 60 (>60) 11/12/19 04:43 Est GFR (MDRD) Non-Af > 60 (>60) 11/12/19 04:43 Glucose 90 mg/dL (75-110) 11/12/19 04:43 Hemoglobin A1c % 6.4 % (4.7-6.0) H 11/10/19 07:12 Calcium 8.0 mg/dL (8.4-10.2) L 11/12/19 04:43 Ionized Calcium John 1.07 mmol/L (1.14-1.30) L 11/09/19 22:17 Magnesium 2.1 mg/dL (1.6-2.3) 11/12/19 04:43 Iron 30.7 ug/dL (37-170) L 11/12/19 04:43 TIBC 239 ug/dL (250-450) L 11/12/19 04:43 % Saturation 13 % 11/12/19 04:43 Ferritin 40.60 ng/mL (6.2-137.0) 11/12/19 04:43 Total Bilirubin 1.1 mg/dL (0.2-1.3) 11/09/19 21:30 Direct Bilirubin 0.2 mg/dL (0.0-0.4) 11/09/19 21:30 Neonat Total Bilirubin Not Reportable 11/09/19 21:30 Neonat Direct Bilirubin Not Reportable 11/09/19 21:30 Neonat Indirect Bili Not Reportable 11/09/19 21:30 AST 81 U/L (14-36) H 11/09/19 21:30 ALT 34 U/L (<35) 11/09/19 21:30 Alkaline Phosphatase 128 U/L (38-126) H 11/09/19 21:30 Total Protein 7.3 g/dL (6.3-8.2) 11/09/19 21:30 Albumin 3.4 g/dL (3.5-5.0) L 11/09/19 21:30 Triglycerides 124 mg/dL (<150) 11/09/19 21:30 Lipase 375.9 U/L (23-300) H 11/12/19 04:43 Vitamin B12 977.0 pg/mL (239-931) H 11/12/19 04:43 Folate 7.01 ng/mL (>2.76) 11/12/19 04:43 TSH 1.40 uIU/mL (0.47-4.68) 11/09/19 13:40 Urine Color CINDY 11/09/19 13:10 Urine Appearance SLIGHTLY-CLOUDY 11/09/19 13:10 Urine pH 7.0 (5.0-9.0) 11/09/19 13:10 Ur Specific [place] 1.026 11/09/19 13:10 Urine Protein >=500 mg/dL (NEGATIVE) H 11/09/19 13:10 Urine Glucose (UA) NEGATIVE mg/dL (NEGATIVE) 11/09/19 13:10 Urine Ketones NEGATIVE mg/dL (NEGATIVE) 11/09/19 13:10 Urine Blood NEGATIVE (NEGATIVE) 11/09/19 13:10 Urine Nitrite NEGATIVE (NEGATIVE) 11/09/19 13:10 Urine Bilirubin MODERATE (NEGATIVE) H 11/09/19 13:10 Urine Urobilinogen 2.0 mg/dL (<2.0) H 11/09/19 13:10 Ur Leukocyte Esterase NEGATIVE (NEGATIVE) 11/09/19 13:10 Urine WBC (Auto) 2 /HPF 11/09/19 13:10 Urine RBC (Auto) 5 /HPF 11/09/19 13:10 U Hyaline Cast (Auto) 133 /LPF 11/09/19 13:10 Squamous Epi Cells Auto 2 /HPF 11/09/19 13:10 Urine Mucus (Auto) MANY /LPF 11/09/19 13:10 Urine Ascorbic Acid NEGATIVE (NEGATIVE) 11/09/19 13:10 Urine HCG, Qual NEGATIVE (NEGATIVE) 11/09/19 13:10 Stool Occult Blood NEGATIVE (NEGATIVE) 11/12/19 17:30 Salicylates < 1.0 mg/dL (2.0-20.0) L 11/09/19 13:40 Urine Opiates Screen NEGATIVE 11/09/19 13:10 Urine Methadone Screen NEGATIVE 11/09/19 13:10 Acetaminophen < 10 ug/mL (10-30) L 11/09/19 13:40 Ur Barbiturates Screen NEGATIVE 11/09/19 13:10 Ur Phencyclidine Scrn NEGATIVE 11/09/19 13:10 Ur Amphetamines Screen NEGATIVE 11/09/19 13:10 U Benzodiazepines Scrn NEGATIVE 11/09/19 13:10 Urine Cocaine Screen NEGATIVE 11/09/19 13:10 U Marijuana (THC) Screen UNCONFIRMED POSITIVE 11/09/19 13:10 Serum Alcohol < 10 mg/dL (NONE DETECTED) 11/09/19 13:40 Impressions: Abdomen/Pelvis CT 11/09/19 23:37 IMPRESSION: 1. Findings consistent with acute pancreatitis involving the pancreatic head without definite complication of pancreatitis noted at this time. 2. Fatty infiltration of the liver. Plan Goals: pt states she does not know who her medicaid provider is can not make follow up Stroke Is this a Stroke Patient?: No Acute Heart Failure - Is this a Heart Failure Patient?: No
== END 2019-11-12 19:20 | disposition home or self-care (01) | DRG 440 ==
LOC: ER 11:38 → EH 11-10 02:33 → 4N 11-10 04:26
PROVIDERS: ADMIT Family Medicine; ATTEND Internal Medicine
DX: K85.20 Alcohol induced acute pancreatitis without necrosis or infection (principal); F17.200 Nicotine dependence, unspecified, uncomplicated; F10.20 Alcohol dependence, uncomplicated; F12.10 Cannabis abuse, uncomplicated; E87.6 Hypokalemia
CPT/HCPCS: 36415; 74177; 80048; 80053; 80307; 81001; 81025; 82272; 82330; 82607; 82728; 82746; 83036; 83540; 83550; 83690; 83735; 84443; 84478; 85025; 85027; 85045; 87070; 93005; 93010; 96361; 96374; 96375; 96376; 99285; J1644; J2060; J2270; J2405; J2765; J3360; J3411; J3475; J3480; J3490; J7030; J7120

== ENCOUNTER → 2020-01-01 | Outpatient (CLI) | payer MEDICAID ==
[2020-01-01 11:01] LABS: ABSOLUTE EOSINOPHILS # (AUTO) 0.1 10^3/uL (0.0-0.6); ABSOLUTE MONOCYTES (AUTO) 0.4 10^3/uL (0.1-1.4); ABSOLUTE NEUT (AUTO) 3.2 10^3/uL (1.7-8.2); BASOPHILS % (AUTO) 0.6 % (0-2); HEMATOCRIT 31.9 % (36.0-47.0); HEMOGLOBIN 10.7 g/dL (12.0-15.5); LYMPHOCYTES % (AUTO) 20.9 % (13-45); MEAN CORPUSCULAR HGB CONC 33.6 g/dL (32.0-36.0); MEAN CORPUSCULAR VOLUME 80 fl (80-97); MONOCYTES % (AUTO) 7.5 % (3-13); PLATELET COUNT 397 10^3/uL (150-450); RED BLOOD COUNT 3.96 10^6/uL (3.72-5.28); RED CELL DISTRIBUTION WIDTH 17.3 % (11.5-14.0); TOTAL CELLS COUNTED % (AUTO) 100 %; WHITE BLOOD COUNT 4.7 10^3/uL (4.0-10.5)
[2020-01-01 11:10] LABS: PROTHROMBIN TIME 13.4 SEC (11.4-15.4)
[2020-01-01 11:34] LABS: ALBUMIN 4.3 g/dL (3.5-5.0); ALKALINE PHOSPHATASE 191 U/L (38-126); ANION GAP 11 (5-19); ASPARTATE AMINO TRANSFERASE 145 U/L (14-36); BILIRUBIN,DIRECT 0.6 mg/dL (0.0-0.4); BILIRUBIN,TOTAL 2.2 mg/dL (0.2-1.3); BLOOD UREA NITROGEN 7 mg/dL (7-20); CALCIUM 9.5 mg/dL (8.4-10.2); CARBON DIOXIDE 26 mmol/L (22-30); CHLORIDE 100 mmol/L (98-107); GLUCOSE 118 mg/dL (75-110); POTASSIUM 5.1 mmol/L (3.6-5.0); TOTAL PROTEIN 8.9 g/dL (6.3-8.2)
== END ==
LOC: OD 10:12
PROVIDERS: ATTEND Nurse Practitioner Family
DX: B18.2 Chronic viral hepatitis C (principal)
CPT/HCPCS: 36415; 80053; 81270; 82172; 82247; 82977; 83010; 83883; 84460; 85025; 85610; 86317; 87522